=== PATIENT | female | born 1995 | race Caucasian/White ===

== ENCOUNTER 2019-07-12 01:28 | Emergency (ER) | payer BC, OTHER ==
[~2019-07-12] VITALS: Ht 170.2 cm; Wt 59.0 kg
[2019-07-12] MEDS ORDERED: AMOXICILLIN PO (01:53)
[2019-07-12] MEDS ORDERED: SUPER THERAVIT1 EACH PO (01:53)
[2019-07-12] MEDS ORDERED: SYNTHROID25 MC1 PO (01:54)
[2019-07-12] MEDS ORDERED: VITAMIN C PO (01:54)
[2019-07-12] MEDS ORDERED: VITAMIN D31 ML PO (01:55)
[2019-07-12 02:38] VITALS: BP 104/58
== END 2019-07-12 02:40 | disposition home or self-care (01) ==
LOC: ER 01:28
DX: O26.892 Other specified pregnancy related conditions, second trimester (principal); M25.511 Pain in right shoulder; Z3A.16 16 weeks gestation of pregnancy